=== PATIENT | male | born 1980 | race African-American/Black ===

== ENCOUNTER 2022-06-07 14:04 | Emergency (ER) | payer SELFPAY ==
--- NOTE | ~2022-06-07 | XR_ITS ---
XR chest 2V DATE: 06/07/2022 16:05 INDICATION: Cough for 3 to 4 days. Hypertension. Chronic bronchitis. TECHNIQUE: PA and lateral views COMPARISON: None FINDINGS: Normal heart size. No hilar or mediastinal enlargement. No pulmonary infiltrate or consolid ation, pleural effusion or pulmonary vascular congestion or pneumothorax. Mild thoracic scoliosis. IMPRESSION: No active cardiopulmonary disease Reviewed, dictated and finalized at location A.
[2022-06-07 15:00] VITALS: BP 173/94; PULSE 86; RESP 16; TEMP 37.1; O2SAT 97
--- NOTE | 2022-06-07 15:45 | PC.NURSE ---
Pt in halls talking on phone. No cough or resp distress noted.
--- NOTE | 2022-06-07 16:02 | ED.URI ---
HPI - URI/Sore Throat General Chief Complaint: Upper Respiratory Infection Stated Complaint: ASTHMA/BRONCHITIS/BAD COUGH Time Seen by Provider: 06/07/22 15:55 Source: patient Mode of arrival: ambulatory Limitations: no limitations History of Present Illness HPI Narrative: Patient is a 41-year-old male with a history of COPD, former smoker, chronic bronchitis, presenting to the emergency department for evaluation of cough. Patient reports he has been symptomatic with a bad cough over the past 2 weeks. Patient states that he does not have wheezing or fever. Patient reports in the past, his primary care physician in [place] will prescribe him Tussionex as well as prednisone which helped resolve his symptoms. Patient denies hemoptysis or chest pain. He denies leg swelling or calf pain. Patient states he moved here from [place] 1 month ago to take care of his aunt who is sick with cancer. Patient is also requesting to establish care with a primary care physician in the area. Patient is able to ask specifically for the prescriptions he would like including prednisone and Tussionex liquid. This is an opiate prescription, patient is able to show me a prescription that his primary care physician prescribed in the past. Related Data Allergies Allergy/AdvReac Type Severity Reaction Status Date / Time No Known Allergies Allergy Verified 06/07/22 14:59 Review of Systems Review of Systems: CONSTITUTIONAL: Denies fever, chills, or sweats. ENT: Denies rhinorrhea, congestion, sore throat, or otalgia. CARDIOVASCULAR: Denies chest pain, palpitations, or edema. RESPIRATORY: Reports cough without dyspnea GASTROINTESTINAL: Denies abdominal pain, nausea, vomiting, or diarrhea. GENITOURINARY: Denies dysuria or hematuria. SKIN: Denies rash or itching. MUSCULOSKELETAL: Denies back pain, joint pain, or myalgia. NEUROLOGIC: Denies headache, numbness, or weakness. 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 EYES: PERRLA and EOMI. ENT: Nares clear, no rhinorrhea or epistaxis. Mucous membranes moist. NECK: Supple. CHEST: No respiratory distress, breathing even and non labored, no rhonchi or wheezing HEART: Regular rate, sinus rhythm ABDOMEN:Non distended, non tender EXTREMITIES: Normal range of motion. No edema. SKIN: Warm, dry, no rash. NEURO:No focal deficits. Alert and oriented x3, patient ambulatory with a narrow base, steady gait Course Vital Signs Vital signs: Vital Signs Temperature 37.1 C 06/07/22 15:00 Pulse Rate 86 06/07/22 15:00 Respiratory Rate 16 06/07/22 15:00 Blood Pressure 173/94 H 06/07/22 15:00 Pulse Oximetry 97 06/07/22 15:00 Temperature 37.1 C 06/07/22 15:00 Pulse Rate 86 06/07/22 15:00 Respiratory Rate 16 06/07/22 15:00 Blood Pressure 173/94 H 06/07/22 15:00 Pulse Oximetry 97 06/07/22 15:00 MDM - URI/Sore Throat MDM Narrative Medical decision making narrative: Patient is new to the area, presenting for evaluation of cough. At the time of assessment, ABCs are intact and vital signs are notable for hypertension. Patient is not tachypneic, tachycardic or febrile. His lungs are clear to auscultation. Patient is insistent that he has active bronchitis given his productive cough. Chest x-ray is normal. Patient seems to be requesting opiate prescription as well as steroids. I was able to verify that in the past he has been prescribed this by a physician, however I did state that I would only be prescribing a one-time dose of these and this is an addictive opiate substance that is not routinely given for cough. Patient seemed upset that I would not prescrib
[2022-06-07 17:02] LABS: Influenza A QL RT-PCR Negative (Negative); Influenza B QL RT-PCR Negative (Negative); SARS-CoV-2 RNA PCR Negative
== END 2022-06-07 16:45 | disposition home or self-care (01) ==
PROVIDERS: Emergency Provider Emergency Medicine
DX: R05.9 Cough, unspecified (principal); Z20.822 Contact with and (suspected) exposure to COVID-19
CPT/HCPCS: 71046; 87502; 99283; U0003; U0005